=== PATIENT | female | born 1995 | race Caucasian/White ===

== ENCOUNTER 2016-08-21 02:46 | Observation (INO) | payer BC ==
[~2016-08-21] VITALS: Ht 157.5 cm
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
--- NOTE | ~2016-08-21 | OR ---
PATIENT'S NAME: FARIDEH BRUMFIELD [facility] AGE: 21 Y [address] ROOM: [facility] [place], [place] [address] LOCATION: [facility] ADMIT DATE: 08/21/2016 OR/Procedure Report DISCHARGE DATE: FAMILY PHYSICIAN: PHYSICIAN, UNKNOWN ATTENDING PHYSICIAN: Hermes Baker SURGEON: Hermes Baker MD PUG MACHINE OPERATOR: KARELY Uribe. DATE OF PROCEDURE: 08/21/2016 PREOPERATIVE DIAGNOSIS: Bimalleolar fracture, right ankle. POSTOPERATIVE DIAGNOSIS: Bimalleolar fracture, right ankle. OPERATION: ORIF. ANESTHESIA: General ET tube. INDICATIONS: This is a 21-year-old female, who fell off a roof in the early hours this morning sustaining a trimalleolar fracture. She was seen in the emergency department by Dr. Gore and she was splinted. DESCRIPTION OF PROCEDURE: The patient was brought to the operating room and when satisfactory general anesthesia had been established, her right lower extremity was prepped and draped in an aseptic manner. The extremity was exsanguinated with elevation and pneumatic tourniquet inflated to 250 mmHg around the upper right thigh. A straight lateral incision was made over the lateral malleolus and carried down through the subcutaneous fat to the bone. The fracture was identified and exposed and reduced. An anterior-posterior lag screw was placed using a 3.5 drill hole in the anterior fibula and a 2.5 hole in the posterior fibula. It was measured and a 3.5 cortical screw placed and it tightened down nicely and produced compression at the fracture site. A seven hole semitubular locking plate was then bent to fit to the lateral malleolus. It was held in place while a 3.5 cortical screw was placed distal to the fracture and another one proximal to the fracture. The screws were placed in compression mode. The remaining screw holes except for one at the fracture were drilled, measured, and filled with 3.5 locking screws. Position of the implants was checked. A medial incision was made over the medial malleolus and carried down through the subcutaneous fat. The medial malleolar fracture was found and exposed. It was a small medial fragment and appeared that really only one screw would be able to be placed in it. The fragment was distracted with a Musa retractor and the joint visualized and no bony fragments or loose bodies were found. The joint was irrigated. Articular cartilage appeared to be fine. The fracture was reduced and held with a point- to-point clamp. A guide pin for the 4.0 cannulated screw set was then drilled up into the lateral malleolus. A guide pin would cross the lateral cortex of PATIENT'S NAME: FARIDEH BRUMFIELD [facility] AGE: 21 Y [address] ROOM: [place] [address] LOCATION: [facility] ADMIT DATE: 08/21/2016 OR/Procedure Report DISCHARGE DATE: FAMILY PHYSICIAN: PHYSICIAN, UNKNOWN ATTENDING PHYSICIAN: Hermes Baker the tibia. The longest screw available was a 76 and after a 50 had been placed and 70 had been placed and neither one gave good compression, 76 was placed, and it barely caught the lateral cortex of the tibia and really did not give much in the way of compression. Holes were then drilled with a guide pin, one above and one below the fracture site anteriorly. A #2 Orthocord stitch was then placed and tightened down and that appeared to give improved stability over the screw only. The screw was tightened a little more too and that seemed to help with stability. The deltoid ligament was then repaired with interrupted 2-0 Vicryl. The remainder of the closure was by KARELY Cummings, who closed the lateral wound with a running 2-0 Vicryl subcutaneous suture. Skin was closed with skin gabe. Medially, the subcutaneous fat was closed with running 2-0 Vicryl and the skin closed with skin gabe. Dressings and a boot walker were applied. The patient was awakened and sent to the recovery area having tolerated the procedure well. MD CUCA TRIVEDI/malcolm /[id number] d: 08/21/16 2334 t: 08/30/16 1032, OPERATIVE SUMMARY
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
[2016-08-21 03:03] LABS: BASOPHIL % 0.3 %; EOSINOPHIL # 0.2 K/uL (0.0-0.5); EOSINOPHIL % 1.8 %; HEMATOCRIT 39.1 % (33.0-46.0); HEMOGLOBIN 13.5 g/dL (11.0-15.0); IMMATURE GRANULOCYTE % 0.4 %; LYMPHOCYTE # 4.3 K/uL (0.8-4.0); LYMPHOCYTE % 43.1 %; MCH 30.5 pg (27.0-34.0); MCHC 34.5 gm/dL (32.0-36.5); MCV 88.5 fl (83.0-98.0); MONOCYTE # 0.9 K/uL (0.0-1.0); MONOCYTE % 8.7 %; MPV 10.7 fl (9.4-12.4); NEUTROPHIL # (ANC) 4.5 K/uL (1.8-7.8); NEUTROPHIL % 45.7 %; NRBC % 0 /100WBC (0-0.00); PLATELET COUNT 227 K/uL (150-450); RBC 4.42 M/uL (3.50-5.00); RDW-CV 12.1 % (11.9-14.6); WBC 9.9 K/uL (4.0-11.0)
[2016-08-21 03:13] LABS: INR - (THERAPEUTIC) 0.95 (0.92-1.07); PTT 25 SECONDS (25-32)
[2016-08-21 03:21] LABS: ALBUMIN 4.2 gm/dL (3.5-5.0); ALK PHOS 68 IU/L (33-138); ALT 28 IU/L (12-78); ANION GAP 16.8 (10.0-19.0); AST 23 IU/L (10-40); BLOOD UREA NITROGEN 15 mg/dL (6-24); CALCIUM 8.7 mg/dL (8.5-10.5); CHLORIDE 111 mMol/L (96-110); CO2 19 mMol/L (22-32); CREATININE 0.8 mg/dL (0.5-1.1); ESTIMATED GFR (MDRD EQUATION) > 60; POTASSIUM 3.8 mMol/L (3.7-5.1); SODIUM 143 mMol/L (135-145); TOTAL BILIRUBIN 0.3 mg/dL (0.0-1.5); TOTAL PROTEIN 7.9 g/dL (6.0-8.4)
[2016-08-22] MEDS ORDERED: DILAUDID 2MG(HYD2 MG PO (09:13)
== END 2016-08-22 12:00 | disposition disaster alternative care site (69) ==
LOC: GACC 02:46 → GMSU 05:30 → G3N 05:30 → GMSU 05:30 → G3N 15:41
PROVIDERS: Emergency Medicine; ADMIT Orthopaedic Surgery
PROC: 0QHJ04Z Insertion of Internal Fixation Device into Right Fibula, Open Approach (ICD-10-PCS; principal; 2016-08-21)
DX: S82.844A Nondisplaced bimalleolar fracture of right lower leg, initial encounter for closed fracture (principal); F10.129 Alcohol abuse with intoxication, unspecified; W17.89XA Other fall from one level to another, initial encounter
CPT/HCPCS: C1713; C1769; G0378; G0480; J0690; J1170; J2270; J2405; J2550; J3010; J7030; J7120